=== PATIENT | female | born 1960 | race Two or more races ===

== ENCOUNTER → 2024-05-02 14:04 | Outpatient (REF) | payer MEDICARE, SELFPAY | LOC: RAD 14:04 | PROVIDERS: ATTENDING PHYSICIAN Family Medicine | DX: N95.0 Postmenopausal bleeding (principal) | CPT/HCPCS: 76830; 76856 ==

== ENCOUNTER → 2024-08-28 09:13 | Outpatient (REF) | payer MEDICARE, SELFPAY ==
[2024-08-28 11:19] LABS: Venous Blood Gas B.E. 2.8 mmol/L (-4 to +4); Venous Blood Gas O2 Sat % 71.1 %; Venous Blood Gas pCO2 49 mmHg (35-48); Venous Blood Gas pH 7.38 (7.32-7.43); Venous Blood Gas pO2 43 mmHg (30-50)
== END ==
LOC: HWRAD 09:13
PROVIDERS: ATTENDING PHYSICIAN Internal Medicine Critical Care Medicine
DX: R06.00 Dyspnea, unspecified (principal); R09.02 Hypoxemia; Z01.811 Encounter for preprocedural respiratory examination; R06.09 Other forms of dyspnea
CPT/HCPCS: 36415; 71046; 82805

== ENCOUNTER → 2024-09-02 12:16 | Outpatient (REF) | payer MEDICARE, SELFPAY | LOC: DHSLP 12:16 | PROVIDERS: ATTENDING PHYSICIAN Internal Medicine Critical Care Medicine; FAMILY PHYSICIAN Family Medicine | DX: G47.33 Obstructive sleep apnea (adult) (pediatric) (principal); R09.02 Hypoxemia; G47.00 Insomnia, unspecified | CPT/HCPCS: 95810 ==

== ENCOUNTER 2024-11-10 15:27 | Emergency (ER) | payer MEDICARE, SELFPAY ==
[2024-11-10 15:44] VITALS: BP 157/107
[2024-11-10 16:14] LABS: % Basophils 0.8 % (0-2); % Eosinophils 3.3 % (0-6); % Immature Granulocytes 0.1 % (0-0.5); % Lymphocytes 21.9 % (20.5-51.1); % Monocytes 7.1 % (1.7-9.3); % Neutrophils 66.8 % (42.2-75.2); Absolute Basophils 0.1 10^3/uL (0-0.2); Absolute Eosinophils 0.2 10^3/uL (0-0.7); Absolute Lymphocytes 1.6 10^3/uL (1.2-3.4); Absolute Monocytes 0.5 10^3/uL (0.1-0.6); Absolute Neutrophils 4.9 10^3/uL (1.4-6.5); Hematocrit 45.6 % (37.0-47.0); Hemoglobin 15.7 g/dL (12.0-16.0); Mean Corp Hgb Conc. 34.4 g/dL (33.0-37.0); Mean Corpuscular Hgb 31.8 pg (27.0-31.0); Mean Corpuscular Volume 92.3 fL (81.0-99.0); Mean Platelet Volume 11.6 fL (7.4-10.4); Nucleated Red Blood Cells % 0 %; Platelet Count 194 10^3/uL (130-400); Red Blood Cell Count 4.94 10^6/uL (4.20-5.40); Red Cell Dist. Width 12.5 % (11.5-14.5); White Blood Cell Count 7.3 10^3/uL (4.8-10.8)
[2024-11-10 16:21] LABS: ALT (SGPT) 25 U/L (0-35); AST (SGOT) 29 U/L (14-36); Albumin 3.9 g/dl (3.5-5.0); Alkaline Phosphatase 86 U/L (38-126); Blood Urea Nitrogen 10 mg/dl (7-17); Calcium 9.1 mg/dl (8.4-10.2); Carbon Dioxide 28 mmol/L (22-30); Chloride 97 mmol/L (98-107); Glucose 153 mg/dl (70-99); Potassium 4.4 mmol/L (3.5-5.1); Sodium 132 mmol/L (135-145); Total Bilirubin 0.9 mg/dl (0.2-1.3); Total Protein 7.1 g/dl (6.3-8.2); eGFR > 60.00
[2024-11-10 16:33] LABS: NT-proBNP 3150 pg/ml; Troponin I < 0.012 ng/ml
[2024-11-10 16:34] LABS: APTT 27.9 Sec (23.4-35.0)
[2024-11-10 16:49] VITALS: BP 144/98
[2024-11-10 17:00] VITALS: BP 143/94
--- NOTE | 2024-11-10 17:19 | ED.GENMED ---
History of Present Illness
General
Chief Complaint: Heart Rate Problem
Source: patient
Exam Limitations: none
Time Seen by Provider: 11/10/24 17:06
Nursing documentation reviewed up to this point in time: agreed with
History of Present Illness
History of Present Illness:
The patient is a 64-year-old female with a past medical history of high blood pressure, hyperlipidemia and ads-[id number]-[id number] diabetes who reports developing rapid palpitations earlier today. Patient denies chest or any shortness of breath. On
arrival, patient's EKG showed atrial fibrillation. Patient reports she has never had a known history of A-fib, however, she has been experiencing recent palpitations frequently lately. She denies leg pain and leg swelling. She reports that she
did drink some alcohol yesterday
Past History
Past History
ED Past Medical History: HTN, Hypercholesterolemia and NIDDM
ED Past Surgical History: Other
Social History
Tobacco: Former smoker
Alcohol: Occasional
Drug: None
Personal:
Living: with family
Employment: Other
Review of Systems
Review of Systems
Allergies reviewed?: Yes
All Other Systems: ROS reviewed and negative except as documented in HPI and ROS
Constitutional: Reports no symptoms
EENT: Reports no symptoms
Respiratory: Reports no symptoms
Cardiac: Reports palpitations
ABD/GI: Reports no symptoms
: Reports no symptoms
Musculoskeletal: Reports no symptoms
Skin: Reports no symptoms
Neurological: Reports no symptoms
Endocrine: Reports no symptoms
Hematologic/Lymphatic: Reports no symptoms
Psychiatric: Reports no symptoms
Phy Exam
Physical Exam
Physical Exam:
Physical Exam
General: no apparent distress, not acutely ill
Neck: supple. no meningeal signs. normal psoterior pharynx
Heart: Irregular, rapid
Lungs: no acute respiratory distress. clear bilaterally
Abdomen: normal bowel sounds. not tender. no CVAT
Neuro: alert and oriented. no focal neurological deficits
Skin: no rash
Psychiatric: well kept. interactive and cooperative
Extremities: no edema. no calf tenderness. negative homans. good distal pulses
Course
Orders/Labs/Results
Orders:
Orders
11/10/24 15:28
ECG [Electrocardiogram (*1)] Urgent
Reason for Study: Palpitations
EKG- Treatment ONCE
11/10/24 16:00
Complete Blood Count/With Diff Urgent
Comprehensive Metabolic Panel Urgent
PTT Urgent
Pro-BNP [NT-proBNP] Urgent
Troponin I Urgent
11/10/24 17:45
EKG [Electrocardiogram (*1)] Urgent
Reason for Study: Atrial Fibrillation
11/10/24 17:46
EKG- Treatment ONCE
11/10/24 18:02
Case Management Consult ONCE
Case Management Consult: Discharge Planning
Requested By:: PHYSICIAN
Comment: Need help with coverage for Eliquis
11/10/24 18:33
Apixaban [Eliquis] 5 mg PO NOW STA
Metoprolol Xl [Toprol Xl] 25 mg PO NOW STA
Abnormal Lab Results
11/10/24
16:00
MCH 31.8 H pg
(27.0-31.0)
MPV 11.6 H fL
(7.4-10.4)
Sodium 132 L mmol/L
(135-145)
Chloride 97 L mmol/L
(98-107)
Glucose 153 H mg/dl
(70-99)
11/10/24 16:00
11/10/24 16:00
Vital Signs
Initial and Last Documented VS:
Initial Vital Signs
Temp Pulse Resp BP Pulse Ox
98.1 F 142 19 157/107 97
11/10/24 15:44 11/10/24 15:44 02/14/25 15:44 11/10/24 15:44 11/10/24 15:44
Last Documented Vital Signs
Temp Pulse Resp BP Pulse Ox
98.1 F 63 18 140/82 97
11/10/24 15:44 11/10/24 18:02 11/10/24 18:02 11/10/24 18:02 11/10/24 18:00
MDM/Problems Addressed
Differential Diagnosis Includes:
Sinus tachycardia, new onset A-fib, a flutter
MDM/Problems Addressed:
Patient presents with acute palpitations
Chronic conditions affecting care: HTN
Acute Exacerbation and/or Progression of Chronic Illness:
Given patient's history of high blood pressure, she is at increased risk of developing A-fib and stroke
Acute Exacerbation and/or Progression of Chronic Illness: HTN
*Pulse Oximetry
Patient hypoxic: no
*EKG
Interpreted by ED Provider?: Yes
Interpretation: abnormal
Comparison EKG: no comparison EKG present
Rate: tachycardiac
Rhythm: a-fib
[place]: normal axis
Interval: normal interval
QRS Pattern: normal QRS
Ischemia: non-specific ST changes
*Party Plan Sales Unit Advisor Interpretation
Rate: tachycardiac
Interpretation: abnormal
Rhythm: a-fib
*Critical Care Note
Total Time (30-74mins, 75-104mins- exclusive of procedures): Not Applicable
Data Reviewed
Review of Other/Old Records Reveals: Testing (Reviewed sleep study test from 2023 which shows evidence of sleep apnea)
Source: patient
Patient Management
Social determinants of health affecting care: Living situation and Strong social support
Discussion with other providers: Other (Case discussed with Dr. Peralta who agreed the patient could safely go home on Eliquis and a beta-jay and she will help facilitate outpatient follow-up)
Escalation/DeEscalation of care consider admission/obs:
Patient given coupon for Eliquis in ED. Patient understands the importance of starting the Eliquis and metoprolol and the importance of following up with either her own pathology laboratory director or Dr. Peralta's office
Update Note
Update Note:
While patient was on the heart monitor, heart rate came down to the 70s. Repeat EKG done at 5:50 PM which shows a normal sinus rhythm, normal axis with nonspecific T wave abnormalities.
ED Attending Note
-
Portions of this chart may have been created with voice recognition software.� Occasional wrong word or��sound alike� substitutions may have occurred due to the inherent limitations of voice recognition software.
Discharge Plan
Departure
Patient Disposition: Home (Routine Discharge)
Date of Disposition: 11/10/24
Time of Disposition: 18:30
Patient with high blood pressure during this ER visit?: Yes
Condition: Good
Covid-19: Not Applicable
Discharge Problem:
Atrial fibrillation
Instructions: Atrial Fibrillation (DC), How to take anticoagulants safely, BLOOD PRESSURE
Prescriptions:
New
Eliquis 5 mg tablet
5 mg PO BID 30 Days Qty: 60 0RF
metoprolol succinate 25 mg tablet extended release 24 hr
25 mg PO DAILY Qty: 30 0RF
Rx Instructions:
Take in the evening
Referrals:
Aries Peralta MD [Active] -
Activity Restrictions/Additional Instructions:
Dr. Peralta's cardiology office will call you to schedule an appointment. If you do not hear from them by this Wednesday, please give them a call. If you are comfortable with your own pathology laboratory director, please call them as soon as possible to
make an appointment and let them know that you have been started on new medication for atrial for patient.
Interventions
Interventions:
*Risk Screen - Suicide Last Done: 11/10/24 15:44
ED- Cardiac Assessment Last Done: 11/10/24 17:06
ED- Pulmonary Assessment Last Done: 11/10/24 17:06
Discharge Date and Time
Print Language: ESTONIAN
[2024-11-10 18:02] VITALS: BP 140/82
[2024-11-10] MEDS: ELIQUIS 5 MG PO (18:59)
[2024-11-10] MEDS: TOPROL XL 25 MG PO (18:59)
--- NOTE | 2024-11-13 12:58 | CM ---
Patient stated that Eliquis is $500. She did avail herself of the coupon that was provided for her. SHe plans to discuss with cardiology alternatives for anticoagulation as this is unaffordable for her.
== END 2024-11-10 19:08 | disposition home or self-care (01) ==
LOC: EMR 15:27
PROVIDERS: EMERGENCY PHYSICIAN Emergency Medicine; PRIMARYCARE PHYSICIAN Family Medicine
DX: I48.91 Unspecified atrial fibrillation (principal); E78.00 Pure hypercholesterolemia, unspecified; I10 Essential (primary) hypertension; E11.9 Type 2 diabetes mellitus without complications; Z79.01 Long term (current) use of anticoagulants; Z87.891 Personal history of nicotine dependence
CPT/HCPCS: 99283; 80053; 83880; 84484; 85025; 85730; 93005

== ENCOUNTER 2024-12-22 06:09 | Day surgery (SDC) | payer MEDICARE, SELFPAY ==
[2024-12-15 09:06] LABS: % Basophils 0.7 % (0-2); % Immature Granulocytes 0.4 % (0-0.5); % Monocytes 7.5 % (1.7-9.3); % Neutrophils 62.4 % (42.2-75.2); Absolute Eosinophils 0.3 10^3/uL (0-0.7); Absolute Lymphocytes 1.3 10^3/uL (1.2-3.4); Absolute Monocytes 0.4 10^3/uL (0.1-0.6); Absolute Neutrophils 3.5 10^3/uL (1.4-6.5); Hematocrit 44.9 % (37.0-47.0); Hemoglobin 15.2 g/dL (12.0-16.0); Mean Corp Hgb Conc. 33.9 g/dL (33.0-37.0); Mean Corpuscular Hgb 31.1 pg (27.0-31.0); Mean Corpuscular Volume 91.8 fL (81.0-99.0); Mean Platelet Volume 11.9 fL (7.4-10.4); Nucleated Red Blood Cells % 0 %; Platelet Count 172 10^3/uL (130-400); Red Blood Cell Count 4.89 10^6/uL (4.20-5.40); Red Cell Dist. Width 12.1 % (11.5-14.5); White Blood Cell Count 5.6 10^3/uL (4.8-10.8)
[2024-12-15 09:38] LABS: ALT (SGPT) 39 U/L (0-35); AST (SGOT) 34 U/L (14-36); Albumin 3.9 g/dl (3.5-5.0); Alkaline Phosphatase 87 U/L (38-126); Blood Urea Nitrogen 9 mg/dl (7-17); Calcium 9.5 mg/dl (8.4-10.2); Carbon Dioxide 32 mmol/L (22-30); Chloride 98 mmol/L (98-107); Glucose 114 mg/dl (70-99); Potassium 4.3 mmol/L (3.5-5.1); Sodium 137 mmol/L (135-145); Total Protein 7.1 g/dl (6.3-8.2); eGFR > 60.00
[2024-12-15 14:07] VITALS: BMI 42.5
[2024-12-22] VITALS (8 sets, daily range): BP systolic 109–150; BP diastolic 55–79; BMI 42.5
[2024-12-22 08:35] LABS: Glucose - Point of Care 140 mg/dl (70-99)
== END 2024-12-22 10:15 | disposition home or self-care (01) ==
LOC: SDS 06:09
PROVIDERS: ATTENDING PHYSICIAN Obstetrics & Gynecology Gynecology; FAMILY PHYSICIAN Family Medicine
DX: N95.0 Postmenopausal bleeding (principal); N84.0 Polyp of corpus uteri; D26.1 Other benign neoplasm of corpus uteri
CPT/HCPCS: 58558; 88305; 80053; 82962; 85025

== ENCOUNTER → 2024-12-29 10:12 | Outpatient (REF) | payer MEDICARE, SELFPAY | LOC: HWRCS 10:12 | PROVIDERS: ATTENDING PHYSICIAN Nurse Practitioner; FAMILY PHYSICIAN Family Medicine | DX: I48.0 Paroxysmal atrial fibrillation (principal) | CPT/HCPCS: 93306 ==

== ENCOUNTER → 2025-01-02 14:59 | Outpatient (REF) | payer MEDICARE, SELFPAY | LOC: HWWDC 14:59 | PROVIDERS: ATTENDING PHYSICIAN Family Medicine | DX: Z12.31 Encounter for screening mammogram for malignant neoplasm of breast (principal) | CPT/HCPCS: 77063; 77067 ==

== ENCOUNTER → 2025-07-16 07:30 | Outpatient (REF) | payer MEDICARE, SELFPAY | LOC: HWWDC 07:30 | PROVIDERS: ATTENDING PHYSICIAN Family Medicine | DX: Z12.31 Encounter for screening mammogram for malignant neoplasm of breast (principal) | CPT/HCPCS: 77061; 77065 ==

== ENCOUNTER → 2025-08-06 13:53 | Outpatient (REF) | payer MEDICARE, SELFPAY | LOC: HWRCS 13:53 | PROVIDERS: ATTENDING PHYSICIAN Student in an Organized Health Care Education/Training Program; FAMILY PHYSICIAN Family Medicine | DX: I48.0 Paroxysmal atrial fibrillation (principal) | CPT/HCPCS: 93306 ==